=== PATIENT | female | born 1965 | race African-American/Black ===

== ENCOUNTER 2018-11-21 10:48 | Inpatient (IN) | payer BC, MEDICAID ==
[2018-11-21] VITALS (7 sets, daily range): BP systolic 124–136; BP diastolic 65–85
[~2018-11-21] VITALS: Ht 165.1 cm; Wt 112.9 kg
[2018-11-21] MEDS ORDERED: ALBUTEROL (0.083%) 2.5MG/3ML NEB HHN STA ×2 (11:00→12:34)
[2018-11-21] MEDS ORDERED: IPRATROPIUM BROMIDE (0.02%) 0.5MG/2.5ML NEB HHN STA (11:00)
[2018-11-21] MEDS ORDERED: METHYLPREDNISOLONE SOD SUCC 125 MG/2 ML VIAL IV STA (11:00)
[2018-11-21 11:22] LABS: BASOPHILS % 1.2 % (0.0-2.0); EOSINOPHILS % 0.3 % (0.0-5.0); HEMATOCRIT. 32.6 % (36.0-48.0); HEMOGLOBIN. 10.9 g/dL (12.0-16.0); MEAN CORPUSCULAR HEMOGLOBIN 28.5 pg (28.0-32.0); MEAN CORPUSCULAR VOLUME 85.6 fL (81.0-99.0); MEAN PLATELET VOLUME 7.6 fl (7.4-10.4); MONOCYTES % 6.8 % (2.0-8.0); NEUTROPHILS % 71.7 % (40.0-76.0); PLATELET 252 x1000/uL (130-400); RED BLOOD CELL COUNT 3.81 mill/uL (4.2-5.4); RED CELL DISTRIBUTION WIDTH 14.3 % (11.6-14.6)
[2018-11-21 11:23] LABS: CHLORIDE 106 mEq/L (98-107)
[2018-11-21] MEDS ORDERED: PNEUMOCOCCAL 23-VAL P-SAC VAC 0.5 ML IM ONE (14:45)
[2018-11-21] MEDS ORDERED: ENOXAPARIN 40MG/0.4ML SYR SUBCUT SCH (15:30)
[2018-11-21] MEDS ORDERED: IPRATROPIUM/ALBUTEROL 0.5-3(2.5)MG/3ML NEB HHN PRN (15:30)
[2018-11-21] MEDS ORDERED: DOCUSATE SODIUM 100MG CAPSULE PO PRN (15:30)
[2018-11-21] MEDS ORDERED: ACETAMINOPHEN 325MG TABLET PO PRN (15:30)
[2018-11-21 17:16] LABS: BG BASE EXCESS -2.5 mmol/L (-2.0-2.0); BG CARBOXYHEMOGLOBIN 0.1 % (0.5-1.5); BG DEOXYHEMOGLOBIN 2.6 % (0.0-5.0); BG FRACTION INSPIRED OXYGEN 30; BG HCO3 ACT 21.2 mmol/L (22.0-26.0); BG METHEMOGLOBIN 0.3 % (0.0-1.5); BG OXYGEN SATURATION 97.4 % (92.0-98.5); BG PCO2 32.9 mmHg (35.0-45.0); BG PH 7.427 (7.350-7.450); BG PO2 108.6 mmHg (75.0-100.0); BG SAMPLE SITE RIGHT RADIAL; BG TOTAL HEMOGLOBIN 10.8 g/dL (12.0-18.0); BG VENT MODE NASAL CANNULA
[2018-11-21] MEDS: LEVOFLOXACIN 500MG PREMIX 100 ML IV SCH (17:59)
[2018-11-21] MEDS ORDERED: IOHEXOL-350 100 ML BOTTLE ONE (19:06)
[2018-11-21] MEDS: ENOXAPARIN 30MG/0.3ML SYR SUBCUT SCH (20:59)
[2018-11-21] MEDS ORDERED: TEMAZEPAM 15MG CAPSULE PO PRN (21:00)
[2018-11-21] MEDS: METHYLPREDNISOLONE SOD SUCC 125 MG/2 ML VIAL IV SCH (21:55)
[2018-11-22] VITALS (12 sets, daily range): BP systolic 124–149; BP diastolic 68–82
[2018-11-22] MEDS: METHYLPREDNISOLONE SOD SUCC 125 MG/2 ML VIAL IV SCH ×3 (05:47→21:15)
[2018-11-22 07:11] LABS: BASOPHILS % 0.2 % (0.0-2.0); HEMATOCRIT. 29.4 % (36.0-48.0); HEMOGLOBIN. 9.8 g/dL (12.0-16.0); LYMPHOCYTES % 12.7 % (20.0-50.0); MEAN CORPUSCULAR HEMOGLOBIN 28.7 pg (28.0-32.0); MEAN CORPUSCULAR VOLUME 85.9 fL (81.0-99.0); MEAN PLATELET VOLUME 8.1 fl (7.4-10.4); MONOCYTES % 4.3 % (2.0-8.0); NEUTROPHILS % 82.8 % (40.0-76.0); PLATELET 245 x1000/uL (130-400); RED BLOOD CELL COUNT 3.42 mill/uL (4.2-5.4); RED CELL DISTRIBUTION WIDTH 14.4 % (11.6-14.6)
[2018-11-22 07:45] LABS: CHLORIDE 106 mEq/L (98-107)
[2018-11-22] MEDS: ENOXAPARIN 30MG/0.3ML SYR SUBCUT SCH ×2 (09:11→21:15)
[2018-11-22] MEDS ORDERED: GUAIFENESIN-DM 200MG-20MG/10ML UDC PO PRN (15:45)
[2018-11-22] MEDS: LEVOFLOXACIN 500MG PREMIX 100 ML IV SCH (18:02)
== END 2018-11-22 21:36 | disposition short-term general hospital (02) | DRG 189 ==
LOC: ER 10:48 → 5EST 12:47 → ENRESERV 13:03
PROVIDERS: ADMIT Ophthalmology; ATTEND Ophthalmology
DX: J96.01 Acute respiratory failure with hypoxia (principal); J44.1 Chronic obstructive pulmonary disease with (acute) exacerbation; Z68.41 Body mass index [BMI] 40.0-44.9, adult; G47.30 Sleep apnea, unspecified; I10 Essential (primary) hypertension; I27.20 Pulmonary hypertension, unspecified; Z87.891 Personal history of nicotine dependence
CPT/HCPCS: 36415; 36600; 71045; 71275; 80048; 82375; 82805; 83880; 84443; 84484; 93005; 93306; 94640; 94644; 94660; 96374; 99291; J1650; J1956; J2930; J7611; J7620; Q9967